=== PATIENT | female | born 2000 | race Caucasian/White ===

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

== ENCOUNTER 2021-10-24 08:44 | Emergency (ER) | payer OTHER ==
[~2021-10-24] VITALS: Ht 162.6 cm; Wt 43.1 kg
[2021-10-24 08:59] VITALS: BP_SYST 136
--- NOTE | 2021-10-24 08:59 | NUR ---
Patient to ER bed 6 for evaluation. Side rails up. Report given to Srikanth MASSEY.
[2021-10-24] MEDS ORDERED: NACL 0.9% 2,000 ML IV ONE (09:15)
[2021-10-24 09:43] LABS: BASOPHILS % (AUTO) 0.5 % (0.0-2.0); EOSINOPHILS # (AUTO) 0.1 K/uL (0.0-0.4); EOSINOPHILS % (AUTO) 0.7 % (0.0-4.0); HEMATOCRIT 37.5 % (36-48); HEMOGLOBIN 13.1 g/dL (12.0-16.0); LYMPHOCYTES # (AUTO) 1.2 K/uL (1.0-5.5); LYMPHOCYTES % (AUTO) 13.3 % (20.5-51.5); MEAN CORPUSCULAR HEMOGLOBIN 33 pg (27-31); MEAN CORPUSCULAR HGB CONC 35 % (32-36); MEAN CORPUSCULAR VOLUME 94 fL (79.0-98.0); MONOCYTES # (AUTO) 0.7 K/uL (0.0-1.0); MONOCYTES % (AUTO) 7.5 % (1.7-9.3); NEUTROPHILS # (AUTO) 6.8 K/uL (1.8-7.7); PLATELET COUNT (AUTO) 270 K/uL (130-430); RED BLOOD CELL COUNT(AUTO) 4.01 MIL/uL (4.2-6.2); RED CELL DISTRIBUTION WIDTH 14.2 % (9.0-15.0); WHITE BLOOD COUNT (AUTO) 8.8 K/uL (4.8-10.8)
[2021-10-24 09:51] LABS: CALCIUM 8.9 mg/dL (8.4-11.0); CREATININE 0.8 mg/dL (0.55-1.30)
[2021-10-24 10:05] LABS: ALBUMIN 3.7 g/dL (3.4-4.8); THYROID STIMULATING HORMONE 1.19 uIu/mL (0.36-3.74); TOTAL BILIRUBIN 1.2 mg/dL (0.0-1.0)
[2021-10-24] MEDS ORDERED: POTASSIUM CHLORIDE 20 MEQ TAB.PRT.SR PO ONE (10:15)
[2021-10-24 11:43] LABS: BILIRUBIN,URINE NEGATIVE (NEGATIVE); BLOOD, URINE 3+ (NEGATIVE); CLARITY/URINE CLEAR (CLEAR); COLOR,URINE YELLOW (YELLOW); GLUCOSE,URINE NEGATIVE (NEGATIVE); KETONES,URINE TRACE (NEGATIVE); LEUKOCYTE ESTERASE ,URINE TRACE (NEGATIVE); NITRITE, URINE NEGATIVE (NEGATIVE); PROTEIN URINE NEGATIVE (NEGATIVE); UROBILINOGEN,URINE 0.2 (0.2-1.0)
--- NOTE | 2021-10-24 11:51 | NUR ---
Pt resting quietly- HR down to 97 from 162 on arrival. Denies any SOB, noted to have R calf pain and 4 small purple "dots" on her Right foot. MD aware.
--- NOTE | 2021-10-24 12:00 | NUR ---
Dr Rachel evaluating patient at bedside
[2021-10-24 12:14] LABS: BACTERIA,URINE RARE /HPF (None Seen)
[2021-10-24 12:31] VITALS: BP_SYST 130
--- NOTE | 2021-10-24 12:33 | NUR ---
Patient given written and verbal discharge instructions and verbalizes understanding. ER MD discussed with patient the results and treatment provided. Patient in stable condition. ID arm band removed. No Rx given. Patient educated on pain management and to follow up with PMD. Pain Scale 0/10 . Opportunity for questions provided and answered. Medication side effect fact sheet provided.
== END 2021-10-24 12:33 | disposition home or self-care (01) ==
LOC: SED 08:44
DX: E86.0 Dehydration (principal); R55 Syncope and collapse; E87.6 Hypokalemia; R06.02 Shortness of breath; R42 Dizziness and giddiness; R00.2 Palpitations; Z79.899 Other long term (current) drug therapy
CPT/HCPCS: 99285; 96360; 71045; 80053; 81000; 84703; 83735; 84443; 85025; 85379; 36415; 93005; J7030

== ENCOUNTER 2022-09-15 01:20 | Emergency (ER) | payer OTHER ==
[~2022-09-15] VITALS: Ht 160 cm; Wt 43.1 kg
[2022-09-15 01:25] VITALS: BP_SYST 140
--- NOTE | 2022-09-15 01:25 | NUR ---
Triaged and placed patient in ER bed 4 for evaluation. Bed placed in lowest position with side rails up. Report given to Clint MASSEY for continuity of care. Instructed to notify ED staff for any changes in condition or worsening of symptoms while waiting to be seen by a provider. Patient verbalized understanding.
--- NOTE | 2022-09-15 01:41 | NUR ---
Dr. Bob at bedside examining the patient.
[2022-09-15] MEDS ORDERED: LORazepam 2 MG/ML VIAL IVP ONE (01:45)
[2022-09-15] MEDS ORDERED: NACL 0.9% 1,000 ML IV ONE ×2 (02:00→04:00)
--- NOTE | 2022-09-15 03:00 | NUR ---
PT RESTING WITH FAMILY AT BEDSIDE WITH NO ACUTE DISTRESS
--- NOTE | 2022-09-15 04:56 | NUR ---
MD AT BEDSIDE TO DISCUSS DISCHARGE PLANS.
[2022-09-15 04:58] VITALS: BP_SYST 122
[2022-09-15 05:04] LABS: BARBITURATE, URINE NEGATIVE (NEG <=200); BENZODIAZEPINE, URINE NEGATIVE (NEG <=150); CANNABINOID, URINE NEGATIVE (NEG <=50); COCAINE, URINE NEGATIVE (NEG <=150); METHAMPHETAMINES SCREEN,URINE POSITIVE (NEG <=500); OPIATE, URINE NEGATIVE (NEG <=100); PHENCYCLIDINE SCREEN,URINE NEGATIVE (NEG <=25); UR TRICYCLIC ANTIDEPRESSANTS NEGATIVE (NEG <=300); URINE AMPHETAMINE NEGATIVE (NEG <=500); URINE METHADONE NEGATIVE (NEG <=200); URINE OXYCODONE SCREEN NEGATIVE (NEG <=100); URINE PROPOXYPHENE SCREEN NEGATIVE (NEG <=300)
--- NOTE | 2022-09-15 05:05 | NUR ---
Patient given written and verbal discharge instructions and verbalizes understanding. ER MD BENITO discussed with patient the results and treatment provided. Patient in stable condition. ID arm band removed. IV catheter removed intact and dressing applied, no active bleeding. Rx of NONE given. Patient educated on pain management and to follow up with PMD. Pain Scale . Opportunity for questions provided and answered. Medication side effect fact sheet provided.
== END 2022-09-15 05:05 | disposition home or self-care (01) ==
LOC: SED 01:20
DX: R00.0 Tachycardia, unspecified (principal); F41.9 Anxiety disorder, unspecified; R06.02 Shortness of breath; R07.9 Chest pain, unspecified; Z79.899 Other long term (current) drug therapy
CPT/HCPCS: 99284; 96374; 96361; 80307; 93005; 81025; J2060; J7030